=== PATIENT | female | born 2000 | race Asian ===

== ENCOUNTER 2022-10-17 11:53 | Outpatient (REF) | payer OTHER, SELFPAY ==
[2022-10-17 12:13] LABS: MANUAL DIFF FLAG NO
[2022-10-17 12:33] LABS: Basophils Absolute Auto 0.1 X10*3/uL (0.0-0.2); Basophils Percent Auto 0.8 % (0-2); Eosinophils Absolute Auto 0.9 X10*3/uL (0.0-0.4); Eosinophils Percent Auto 11.9 % (0-4); Hematocrit 45.5 % (37.0-47.0); Hemoglobin 14.5 g/dl (12.0-16.0); Imm Gran Abs Auto 0.01 X10*3/uL (0.00-0.03); Imm Gran Pct Auto 0.1 % (0.0-0.4); Lymphocytes Absolute Auto 2.4 X10*3/uL (1.2-4.9); Lymphocytes Percent Auto 29.8 % (20-40); Mean Corpuscular HGB Conc 31.9 g/dl (31.0-35.0); Mean Corpuscular Hemoglobin 26.2 pg (27.0-33.0); Mean Corpuscular Volume 82.3 fL (80.0-98.0); Mean Platelet Volume 10.6 fL (9.4-12.3); Monocytes Absolute Auto 0.4 X10*3/uL (0.1-1.2); Monocytes Percent Auto 5.3 % (2-11); Neutrophils Absolute Auto 4.1 x10*3/uL (2.0-8.3); Neutrophils Percent Auto 52.1 % (45-73); Platelet Count 283 X10*3/uL (160-400); Red Blood Count 5.53 X10*6/uL (4.20-5.50); Red Cell Distribution Width 12.8 % (11.0-16.0); White Blood Count 7.9 X10*3/uL (4.8-10.8)
[2022-10-17 13:12] LABS: Alanine Aminotransferase 20 U/L (0-31); Albumin Level 4.7 g/dL (3.5-5.0); Alkaline Phosphatase 51 U/L (39-117); Aspartate Amino Transferase 18 U/L (5-31); Bilirubin Direct < 0.2 mg/dL (0.0-0.5); Bilirubin Total 0.4 mg/dL (0.0-1.0); Estimated Glomerular Filt Rate > 60; Total Protein 7.5 g/dL (6.5-8.0)
[2022-10-19 19:48] LABS: TS Negative Control Passed; TS Panel A 0; TS Panel B 0; TS Positive Control Passed; TSpotTB Negative (Negative)
== END 2022-10-17 11:54 | disposition home or self-care (01) ==
LOC: HO.LAB 11:53
PROVIDERS: PCP Nurse Practitioner Family; Visit Provider Dermatology
DX: L20.84 Intrinsic (allergic) eczema (principal); Z79.899 Other long term (current) drug therapy
CPT/HCPCS: 36415; 80076; 82565; 85025; 86481

== ENCOUNTER 2022-11-10 10:59 | Emergency (ER) | payer OTHER, SELFPAY ==
--- NOTE | ~2022-11-10 | XR_ITS ---
EXAMINATION: XR CHEST CLINICAL INFORMATION: Allergic reaction. COMPARISON: None available. TECHNIQUE: 2 views of the chest were obtained. FINDINGS: No significant abnormality is noted involving the heart, lungs, mediastinum, bony thorax or soft tissues. XR/XR chest 2V IMPRESSION: No acute cardiopulmonary process.
[2022-11-10 11:08] VITALS: BP 143/94; PULSE 72; PULSE 80; RESP 20; TEMP 36.9; O2SAT 99; BMI 23.0
[2022-11-10 11:44] VITALS: BP 122/85; PULSE 60; RESP 16; TEMP 36.9; O2SAT 92
--- NOTE | 2022-11-10 11:48 | ED.ALLEREA ---
HPI - Allergic Reaction General Chief complaint: Allergic Reaction Stated complaint: ?ALL RXN/CHICKPEAS,-RASH,ABD PAIN,VOMITING Time Seen by Provider: 11/10/22 11:29 Source: patient Mode of arrival: EMS Limitations: no limitations History of Present Illness HPI narrative: Patient is a 22-year-old female being brought in by EMS with an extensive list of food allergies, eczema, and asthma, cc n/v and abd cramping after having a few bites of a salad she believes may have contained chickpeas which she is highly allergic to. Pt states she ordered the salad from [facility], has had it before without issue and orders it without the chickpeas but knows it comes with it usually. Patient says she realize she was having the reaction pretty quickly because she is use to having reactions to food. However, she has not had a reaction like this since she was a young child. She said her belly started cramping, she vomited three times, and then was dry heaving for a bit. She states that she did not use her epi pen and was not given any epi by EMS but was given benadryl by them. She denies stridor, difficulty swallowing, wheezing, chest pain, sob, edema, urticaria, or diarrhea. MD complaint: allergic reaction Onset (ago): hour(s) (2) Exposure: food Known history of allergy to: Chick peas Symptoms: nausea, vomiting and abdominal pain (cramping intermittently) Severity: mild Treatment prior to arrival: benadryl (by EMS) Previous Allergic Reaction History: other (multiple food reactions) Related Data Home Medications Medication Instructions Recorded Confirmed cetirizine 10 mg tablet (Zyrtec) 10 mg PO DAILY PRN 12/10/20 12/02/21 clobetasol 0.05 % topical cream 1 appl topical DAILY 12/10/20 12/02/21 Previous Rx's Medication Instructions Recorded epinephrine 0.3 mg/0.3 mL 0.3 mg (0.3 mL) IM ONCE PRN 12/10/20 injection, auto-injector (EpiPen anaphylaxis 90 days #2 ea 2-Andrew) pimecrolimus 1 % topical cream 1 appl topical BID 30 days #60 01/27/22 (Elidel) grams nirmatrelvir 300 mg (150 mg See Rx Instructions PO .COMPLEX 02/17/22 x2)-ritonavir 100 mg tablet,dose #30 tabs pack(EUA) triamcinolone acetonide 0.5 % 1 appl topical DAILY #15 grams 05/08/22 topical cream albuterol sulfate 90 mcg/actuation 1 inh inhalation Q4-6H PRN 06/03/22 breath activated powder inhaler shortness of breath 30 days #1 ea triamcinolone and Emollient .1% Kit 0.1 % .Route 2XW 30 days #1 kit 06/03/22 montelukast 10 mg tablet 10 mg PO DAILY 90 days #90 tabs 08/28/22 hydroxyzine HCl 25 mg tablet 25 mg PO BID PRN itching 90 days 09/04/22 #180 tabs fluoxetine 10 mg capsule 10 mg PO DAILY 90 days #90 caps 10/09/22 fluoxetine 20 mg capsule 20 mg PO DAILY 90 days #90 caps 10/09/22 fluticasone propionate 230 2 puff inhalation BID #12 grams 10/27/22 mcg-salmeterol 21 mcg/actuation HFA inhaler (Advair HFA) amoxicillin 875 mg tablet 875 mg PO BID 7 days #14 tabs 11/02/22 polymyxin B sulfate 10,000 1 drp ophthalmic (eye) Q3H 7 days 11/02/22 unit-trimethoprim 1 mg/mL eye #10 mL drops (Polytrim) Allergies Allergy/AdvReac Type Severity Reaction Status Date / Time chicken derived Allergy Unknown STOMACH Verified 11/10/22 11:11 [CHICKEN DERIVED] UPSET fish derived [FISH DERIVED] Allergy Unknown NAUSEA & Verified 11/10/22 11:11 VOMITING wheat [WHEAT] AdvReac Severe VOMITING Verified 11/10/22 11:11 egg [EGGS] AdvReac Unknown NAUSEA/STOMACH Verified 11/10/22 11:11 CRAMPS nut - unspecified [nut] AdvReac Unknown VOMITING Verified 11/10/22 11:11 CHICK PEAS Allergy Severe ANAPHYLAXIS Uncoded 12/02/21 16:27 chicken Allergy Unknown Unknown Uncoded 12/02/21 16:27 chickpeas Allergy Unknown Unknown Uncoded 12/02/21 16:27 codfish Allergy Unknown Unknown Uncoded 12/02/21 16:27 egg Allergy Unknown Unknown Uncoded 12/02/21 16:27 fish Allergy Unknown Unknown Uncoded 12/02/21 16:27 garlic Allergy Unknown Unknown Uncoded 12/02/21 16:27 chaz Allergy Unknown Unknown Uncoded 12/02/21 16:27 nuts Allergy Unknown Unknown Uncoded 12/02/21 16:27 peanuts Allergy Unknown Unknown Uncoded 12/02/21 16:27 potatoes Allergy Unknown Unknown Uncoded 12/02/21 16:27 soybean Allergy Unknown Unknown Uncoded 12/02/21 16:27 turkey Allergy Unknown Unknown Uncoded 12/02/21 16:27 wheat Allergy Unknown Unknown Uncoded 12/02/21 16:27 Review of Systems Review of Systems: Constitutional : No Weight loss, No Fever, No Chills, No Night Sweats, No Fatigue, No Malaise ENT/Mouth : No Hearing loss, No Ear Pain, No Nasal Congestion, No Sinus Pain, No Hoarseness, No sore throat, No Rhinorrhea, No Swallowing Difficulty Eyes: No Eye Pain, No Swelling, No Redness, No Foreign Body, No Discharge, No Vision Changes Cardiovascular : No Chest Pain, No SOB, No Dyspnea on Exertion, No Orthopnea, No Edema, No Palpitations Respiratory : No Cough, No Sputum, No Wheezing, No Smoke Exposure, No Dyspnea Gastrointestinal : Positive Nausea, Positive Vomiting, Positive abdominal pain, No Hematochezia, No Melena Genitourinary : no irregular bleeding, No Dysuria, No Urinary Frequency, No Hematuria, No Urinary Incontinence, No Urgency, No Flank Pain, No Urinary Flow Changes, No Hesitancy Musculoskeletal : No joint pain, No Myalgias, No Joint Swelling Skin : Eczema on face and neck, no lesions Neuro : No Weakness, No Numbness, No Paresthesias, No Loss of Consciousness, No Dizziness, No Headache Psych : No Anxiety/Panic, No Depression, No SI/HI/AH/VH, No Social Issues, Heme/Lymph: No Bruising, No Bleeding,No Lymphadenopathy Endocrine : No Polyuria, No Polydipsia, No Temperature Intolerance Yes all other systems are reviewed and are negative [facility] Past Medical History Attestation statement: The following information was validated with the patient. Source: old records reviewed and nursing notes reviewed Family History Family History Brother Mental health disorder Maternal Aunt Mental health disorder Maternal Uncle Mental health disorder Social History Social History Housing: Condominium Patient Tobacco Use Status: Current everyday Tobacco user Cigarettes Per Day: 1 e-Cigarette/Vaping Use: Currently Using Second Hand Smoke Exposure: No Advance Directives: No Advance Directives Information Provided: Yes service: No Current occupational status: employed Current occupation: [employer] Current occupational exposures/hazards: Yes Cognitive needs: No Hearing needs: No Vision needs: No Physical Exam ED Vital Signs: Vital Signs - 24 hr 11/10/22 11:08 11/10/22 11:44 Temperature 98.4 F 98.5 F Pulse Rate 72 60 Respiratory Rate 20 16 Blood Pressure 143/94 H 122/85 Pulse Oximetry 99 92 Oxygen Delivery Method Room Air Room Air BMI result Body Mass Index 23.0 Vital signs have been reviewed and all within normal limits Appearance: Alert. Oriented X3. No acute distress. Head: Normal external exam. Normocephalic. Eyes: PERRLA. EOMI. Conjunctiva and sclera normal. Eyelids normal. ENT: Pharynx normal. Uvula midline. Moist mucous membranes. No trismus noted. No drooling noted. No muffled voice noted. Neck: Normal inspection. Neck supple. FROM. No adenopathy. No meningeal signs. CVS: Normal heart rate and rhythm. Heart sound normal. No murmurs noted. Pulses normal throughout. Respiratory: No respiratory distress. Painless inspiration. Breath sounds normal. No wheezes/rales/rhonchi noted. Chest nontender. No accessory muscle usage noted or decreased air movement noted. Abdomen: Soft and nontender. Nondistended. No guarding. No rigidity. Bowel sounds normal in all 4 quadrants. No distention noted. No organomegaly noted. No visible injury noted. No rebound tenderness. Negative Rovsing sign. Negative obturator's sign. Negative psoas sign. Negative Asher sign. Back: No CVA tenderness. Full range of motion noted. Skin: No urticaria, Skin warm and dry. Normal skin color. Normal skin turgor. No rashes/lesions/lacerations noted. Extremities: Extremities exhibit normal range of motion. Extremities nontender. Neuro: Oriented X 3. No motor deficit. No sensory deficit. Reflexes normal. Normal steady gait. CN's II-XII intact bilaterally? Course Course Course Narrative: All labs within normal limits. Patient did not want the Solu-Medrol. She did receive the Pepcid in the Toradol. Reports she feels much better. Requesting to go home therefore at this time will DC home instructions return if any new or worsening symptoms to follow up with primary care provider and to take her medications as prescribed if she has any. Patient understands agrees with this plan. Medications Administered Discontinued Medications Generic Name Dose Route Start Last Admin Trade Name Mahendra PRN Reason Stop Dose Admin Famotidine 20 mg 11/10/22 11:49 11/10/22 12:01 Famotidine/Pf 20 Mg/2 Ml Vial IVPUSH 11/10/22 11:50 20 mg ONCE ONE Administration Sodium Chloride 1,000 mls @ 999 mls/hr 11/10/22 11:45 11/10/22 13:03 Ns IVCONT 11/10/22 12:45 Infused .Q1H1M MIKAEL Infusion Methylprednisolone Sodium Succinate 125 mg 11/10/22 11:49 11/10/22 12:02 Methylprednisolone Sod Succ 125 Mg/2 Ml Vial IVPUSH 11/10/22 11:50 Not Given ONCE ONE Medical Decision Making Medical Decision Making MDM Narrative: This 22-year-old female patient presents with symptoms consistent with acute allergic reaction, likely to chick peas which she has a known allergy to. Presentation not consistent with acute anaphylaxis(lack of pulmonary, dermatologic, or cardiovascular symptoms), lack of hypotension, angioedema, serum sickness, ingestion of preformed toxin. No evidence of airway compromise or shock at this time. Pt treated for an allergic reaction with benadryl by EMS prior to arrival. She was treated for abd cramping with famotidine and refused solumedrol. There was no indication for epinephrine at this time. Plan: Labs, CXR, UA, H1/H2 jihan, steroids(refused), hemodynamic monitoring, serial reassessment Lab Data [facility] Lab Attestation statement: I reviewed the patient's lab results. 11/10/22 13:03 11/10/22 13:04 Labs: Lab Results 11/10/22 11/10/22 11/10/22 Range/Units 12:27 13:03 13:04 WBC 10.3 (4.8-10.8) X10*3/uL RBC 5.23 (4.20-5.50) X10*6/uL Hgb 13.7 (12.0-16.0) g/dl Hct 43.3 (37.0-47.0) % MCV 82.8 (80.0-98.0) fL MCH 26.2 L (27.0-33.0) pg MCHC 31.6 (31.0-35.0) g/dl RDW 13.2 (11.0-16.0) % Plt Count 247 (160-400) X10*3/uL MPV 10.8 (9.4-12.3) fL Immature Gran % (Auto) 0.3 (0.0-0.4) % Neut % (Auto) 66.9 (45-73) % Lymph % (Auto) 21.7 (20-40) % Pettis % (Auto) 6.1 (2-11) % Eos % (Auto) 4.5 H (0-4) % Baso % (Auto) 0.5 (0-2) % Lymph # (Auto) 2.2 (1.2-4.9) X10*3/uL Pettis # (Auto) 0.6 (0.1-1.2) X10*3/uL Eos # (Auto) 0.5 H (0.0-0.4) X10*3/uL Baso # (Auto) 0.1 (0.0-0.2) X10*3/uL Abs Immat Gran (auto) 0.03 (0.00-0.03) X10*3/uL Absolute Neuts (auto) 6.9 (2.0-8.3) x10*3/uL Absolute Nucleated RBC 0.000 (0.0-0.012) X10*3/uL Nucleated RBC % (auto) 0.0 (0.0-0.2) /100WBC Sodium 142 (135-145) mmol/L Potassium 4.2 (3.3-5.1) mmol/L Chloride 107 (96-108) mmol/L Carbon Dioxide 26 (22-29) mmol/L Anion Gap 13 (12-20) BUN 6 L (9-16) mg/dL Creatinine 0.76 (0.5-1.4) mg/dL Estim Creat Clear Calc 95.2 Estimated GFR > 60 Random Glucose 92 (60-115) mg/dL Calcium 8.7 (8.4-10.2) mg/dL Magnesium 2.0 (1.6-2.6) mg/dL Total Bilirubin 0.5 (0.0-1.0) mg/dL AST 19 (5-31) U/L ALT 15 (0-31) U/L Alkaline Phosphatase 53 (39-117) U/L Total Protein 6.4 L (6.5-8.0) g/dL Albumin 3.9 (3.5-5.0) g/dL Lipase 52 (8-78) U/L Urine Color Yellow Urine Appearance Clear Urine pH 6.0 (5.0-9.0) Ur Specific Logan 1.015 (1.005-1.025) Urine Protein Negative (Neg-Trace) mg/dL Urine Glucose (UA) Negative (Negative) mg/dL Urine Ketones Negative (Negative) mg/dL Urine Blood Large (3+) H (Negative) Urine Nitrite Negative (Negative) Ur Leukocyte Esterase Small (1+) H (Negative) Urine RBC 3-5 H (0-2) /HPF Urine WBC 6-10 H (0-5) /HPF Ur Squamous Epith Cells 6-10 (0-2) /HPF Urine Bacteria Trace (None Seen) Hyaline Casts 0-2 (0-2) /LPF Independent Interpretation I performed an independent interpretation of an: Plain X-Ray (Chest x-ray reviewed by myself agreeable radiologist report) Radiology Impression Discussion of test interpretation with radiology: I have reviewed the radiologist's reading. Radiologist Impression: FINDINGS: No significant abnormality is noted involving the heart, lungs, mediastinum, bony thorax or soft tissues. XR/XR chest 2V IMPRESSION: No acute cardiopulmonary process. Discharge Plan Discharge Clinical Impression: Allergic reaction, Nausea & vomiting, Abdominal cramping Patient Disposition: Home, Self-Care Instructions: General Allergic Reaction (ED) Prescriptions: No Action epinephrine [EpiPen 2-Andrew] 0.3 mg/0.3 mL auto-injector 0.3 mg IM ONCE PRN (Reason: anaphylaxis) 90 Days Qty: 2 1RF Rx Instructions: for 2 doses cetirizine [Zyrtec] 10 mg tablet 10 mg PO DAILY PRN clobetasol 0.05 % cream 1 appl topical DAILY pimecrolimus [Elidel] 1 % cream 1 appl topical BID 30 Days Qty: 60 5RF nirmatrelvir-ritonavir 150 mg x 2- 100 mg tablet See Rx Instructions PO .COMPLEX Qty: 30 0RF Rx Instructions: take TWO 150 mg tablets of nirmatrelvir with ONE 100 mg tablet of ritonavir twice daily for 5 days PO triamcinolone acetonide 0.5 % cream 1 appl topical DAILY Qty: 15 3RF triamcinolone and Emollient .1% Kit 0.1 % .Route 2XW 30 Days Qty: 1 6RF Rx Instructions: apply locally on skin as needed albuterol sulfate 90 mcg/actuation aerosol powdr breath activated 1 inh inhalation Q4-6H PRN (Reason: shortness of breath) 30 Days Qty: 1 1RF montelukast 10 mg tablet 10 mg PO DAILY 90 Days Qty: 90 0RF hydroxyzine HCl 25 mg tablet 25 mg PO BID PRN (Reason: itching) 90 Days Qty: 180 3RF fluoxetine 10 mg capsule 10 mg PO DAILY 90 Days Qty: 90 1RF Rx Instructions: to be administered with fluoxetine 20mg concurrently, for a total of 30mg fluoxetine 20 mg capsule 20 mg PO DAILY 90 Days Qty: 90 1RF Rx Instructions: administer with fluoxetine 10mg concurrently, for a total of 30mg Advair HFA 230-21 mcg/actuation HFA aerosol inhaler 2 puff inhalation BID Qty: 12 0RF Rx Instructions: Schedule next PCP appt for future refills polymyxin B sulf-trimethoprim [Polytrim] 10,000 unit- 1 mg/mL drops 1 drp ophthalmic (eye) Q3H 7 Days Qty: 10 0RF Rx Instructions: while awake; do not exceed 6 doses in 24 hours amoxicillin 875 mg tablet 875 mg PO BID 7 Days Qty: 14 0RF Referrals: Jerry Trevino, T[employer]IT[employer] ACCOUNT REPRESENTATIVE-[facility] [Primary Care Provider] - 2 days Print Language: Swedish
[2022-11-10] MEDS: Famotidine/PF 20 MG/2 ML VIAL IVPUSH (12:01)
[2022-11-10] MEDS: 0.9 % Sodium Chloride 1,000 ML 999 ML IVCONT (12:02)
--- NOTE | 2022-11-10 12:05 | PC.NURSE ---
Patient reporting abdominal cramping, medicated with famotidine per MAR. Patient refusing solumedrol at this time.
[2022-11-10 12:43] LABS: Appearance Urine Clear; Color Urine Yellow; Glucose Urine UA Negative (Negative); Leukocyte Esterase Urine Small (1+) (Negative); Nitrite Urine Negative (Negative); Specific Gravity - Urine 1.015 (1.005-1.025); UMIC TRIGGER UACC YES; Urine Blood Large (3+) (Negative); Urine Ketones Negative (Negative); Urine Protein Negative (Neg-Trace)
[2022-11-10 12:50] LABS: Bacteria Urine Trace (None Seen); Hyaline Casts Urine 0-2 /LPF (0-2); UACC Culture Trigger YES
[2022-11-10 13:08] LABS: MANUAL DIFF FLAG NO
[2022-11-10 13:09] LABS: Basophils Absolute Auto 0.1 X10*3/uL (0.0-0.2); Basophils Percent Auto 0.5 % (0-2); Eosinophils Absolute Auto 0.5 X10*3/uL (0.0-0.4); Eosinophils Percent Auto 4.5 % (0-4); Hematocrit 43.3 % (37.0-47.0); Hemoglobin 13.7 g/dl (12.0-16.0); Imm Gran Abs Auto 0.03 X10*3/uL (0.00-0.03); Imm Gran Pct Auto 0.3 % (0.0-0.4); Lymphocytes Absolute Auto 2.2 X10*3/uL (1.2-4.9); Lymphocytes Percent Auto 21.7 % (20-40); Mean Corpuscular HGB Conc 31.6 g/dl (31.0-35.0); Mean Corpuscular Hemoglobin 26.2 pg (27.0-33.0); Mean Corpuscular Volume 82.8 fL (80.0-98.0); Mean Platelet Volume 10.8 fL (9.4-12.3); Monocytes Absolute Auto 0.6 X10*3/uL (0.1-1.2); Monocytes Percent Auto 6.1 % (2-11); Neutrophils Absolute Auto 6.9 x10*3/uL (2.0-8.3); Neutrophils Percent Auto 66.9 % (45-73); Platelet Count 247 X10*3/uL (160-400); Red Blood Count 5.23 X10*6/uL (4.20-5.50); Red Cell Distribution Width 13.2 % (11.0-16.0); White Blood Count 10.3 X10*3/uL (4.8-10.8)
[2022-11-10 13:26] LABS: Alanine Aminotransferase 15 U/L (0-31); Albumin Level 3.9 g/dL (3.5-5.0); Alkaline Phosphatase 53 U/L (39-117); Anion Gap 13 (12-20); Aspartate Amino Transferase 19 U/L (5-31); Bilirubin Total 0.5 mg/dL (0.0-1.0); Blood Urea Nitrogen 6 mg/dL (9-16); Calcium 8.7 mg/dL (8.4-10.2); Carbon Dioxide 26 mmol/L (22-29); Chloride 107 mmol/L (96-108); Creatinine Clr Calc Pharmacy 95.2; Estimated Glomerular Filt Rate > 60; Glucose Random 92 mg/dL (60-115); Lipase 52 U/L (8-78); Potassium 4.2 mmol/L (3.3-5.1); Sodium 142 mmol/L (135-145); Total Protein 6.4 g/dL (6.5-8.0)
[2022-11-10 13:33] LABS: HCG Quantitative < 2 mIU/mL
== END 2022-11-10 13:43 | disposition home or self-care (01) ==
PROVIDERS: Physician Assistant Medical; Emergency Provider Emergency Medicine; PCP Nurse Practitioner Family
DX: T78.1XXA Other adverse food reactions, not elsewhere classified, initial encounter (principal); R21 Rash and other nonspecific skin eruption; R10.9 Unspecified abdominal pain; R11.2 Nausea with vomiting, unspecified; T78.49XA Other allergy, initial encounter; Z91.018 Allergy to other foods; X58.XXXA Exposure to other specified factors, initial encounter
CPT/HCPCS: 36415; 71046; 80053; 81001; 83690; 83735; 84702; 85025; 87086; 96361; 96374; 99284

== ENCOUNTER 2023-01-30 07:01 | Outpatient (REF) | payer OTHER, SELFPAY ==
[2023-01-30 07:13] LABS: MANUAL DIFF FLAG NO
[2023-01-30 07:47] LABS: Basophils Percent Auto 0.5 % (0-2); Eosinophils Absolute Auto 0.5 X10*3/uL (0.0-0.4); Eosinophils Percent Auto 7.7 % (0-4); Hematocrit 44.8 % (37.0-47.0); Hemoglobin 14.5 g/dl (12.0-16.0); Imm Gran Abs Auto 0.02 X10*3/uL (0.00-0.03); Imm Gran Pct Auto 0.3 % (0.0-0.4); Lymphocytes Absolute Auto 2.1 X10*3/uL (1.2-4.9); Mean Corpuscular HGB Conc 32.4 g/dl (31.0-35.0); Mean Corpuscular Hemoglobin 27.2 pg (27.0-33.0); Mean Corpuscular Volume 83.9 fL (80.0-98.0); Mean Platelet Volume 11.5 fL (9.4-12.3); Monocytes Absolute Auto 0.4 X10*3/uL (0.1-1.2); Monocytes Percent Auto 6.5 % (2-11); Neutrophils Absolute Auto 3.5 x10*3/uL (2.0-8.3); Platelet Count 221 X10*3/uL (160-400); Red Blood Count 5.34 X10*6/uL (4.20-5.50); Red Cell Distribution Width 13.9 % (11.0-16.0); White Blood Count 6.6 X10*3/uL (4.8-10.8)
[2023-01-30 08:13] LABS: Alanine Aminotransferase 30 U/L (0-31); Albumin Level 4.9 g/dL (3.5-5.0); Alkaline Phosphatase 46 U/L (39-117); Aspartate Amino Transferase 28 U/L (5-31); Bilirubin Direct 0.2 mg/dL (0.0-0.5); Bilirubin Total 0.5 mg/dL (0.0-1.0); Cholesterol 209 mg/dL; HDL Cholesterol 84 mg/dL; LDL Cholesterol Calculated 113 mg/dl; Triglycerides 60 mg/dL
== END 2023-01-30 07:02 | disposition home or self-care (01) ==
LOC: HO.LAB 07:01
PROVIDERS: PCP Nurse Practitioner Family; Visit Provider Dermatology
DX: L20.84 Intrinsic (allergic) eczema (principal); Z79.899 Other long term (current) drug therapy
CPT/HCPCS: 36415; 80061; 80076; 85025

== ENCOUNTER 2023-04-21 08:09 | Outpatient (AMB) | payer OTHER, SELFPAY ==
--- NOTE | 2023-04-21 08:12 | A.OFFPC_ITS ---
Vital Signs 04/21/23 08:23 Height 5 ft 3 in Weight 135 lb BMI 23.9 BP 114/68 Blood Pressure Location Rt brachial Position Sitting Pulse 90 Pulse Source Pulse Oximeter Pulse Oximetry (%) 100 Oxygen Delivery Method Room Air Intake Visit Reasons: Annual check-up Intake Note: Pt is here today for her PE Is last menstrual period known: Yes Last menstrual period: 03/21/23 Allergies chicken derived [CHICKEN DERIVED] Allergy (Unknown, Verified 04/21/23 08:33) STOMACH UPSET fish derived [FISH DERIVED] Allergy (Unknown, Verified 04/21/23 08:33) NAUSEA & VOMITING wheat [WHEAT] Adverse Reaction (Severe, Verified 04/21/23 08:33) VOMITING egg [EGGS] Adverse Reaction (Unknown, Verified 04/21/23 08:33) NAUSEA/STOMACH CRAMPS nut - unspecified [nut] Adverse Reaction (Unknown, Verified 04/21/23 08:33) VOMITING CHICK PEAS Allergy (Severe, Uncoded 04/21/23 08:33) ANAPHYLAXIS chicken Allergy (Unknown, Uncoded 04/21/23 08:33) Unknown chickpeas Allergy (Unknown, Uncoded 04/21/23 08:33) Unknown codfish Allergy (Unknown, Uncoded 04/21/23 08:33) Unknown egg Allergy (Unknown, Uncoded 04/21/23 08:33) Unknown fish Allergy (Unknown, Uncoded 04/21/23 08:33) Unknown garlic Allergy (Unknown, Uncoded 04/21/23 08:33) Unknown chaz Allergy (Unknown, Uncoded 04/21/23 08:33) Unknown nuts Allergy (Unknown, Uncoded 04/21/23 08:33) Unknown peanuts Allergy (Unknown, Uncoded 04/21/23 08:33) Unknown potatoes Allergy (Unknown, Uncoded 04/21/23 08:33) Unknown soybean Allergy (Unknown, Uncoded 04/21/23 08:33) Unknown turkey Allergy (Unknown, Uncoded 04/21/23 08:33) Unknown wheat Allergy (Unknown, Uncoded 04/21/23 08:33) Unknown Medication List - Last Reconciled 04/21/23 by Ashley Harmon MD albuterol sulfate 90 mcg/actuation 1 inh inhalation Q4-6H PRN 30 days cetirizine (Zyrtec) 10 mg PO DAILY PRN clobetasol 0.05% 1 appl topical DAILY epinephrine (EpiPen 2-Andrew) 0.3 mg (0.3 mL) IM ONCE PRN 90 days fluoxetine 10 mg PO DAILY 90 days fluoxetine 20 mg PO DAILY 90 days fluticasone propion-salmeterol 230-21 mcg/actuation (Advair HFA) 2 puffs inhalation BID hydroxyzine HCl 25 mg PO BID PRN 90 days montelukast 10 mg PO DAILY 90 days pimecrolimus 1% (Elidel) 1 appl topical BID 30 days triamcinolone acetonide 0.5% 1 appl topical DAILY [triamcinolone and Emollient .1% Kit apply locally on skin as needed 30 days] upadacitinib ER (Rinvoq) 15 mg PO DAILY Tobacco use date assessed: 04/21/23 Dental Screening Dental Screen Date: 04/21/23 Did you have a dental visit in the last 12 months?: Yes Did you have a dental problem in the last 6 months where you did not have access to dental care?: No Was dental information given to patient?: Patient has dentist HPI Annual check-up HPI Details 23-year-old lady here today for her mahnaz al physical exam. She has multiple food allergies, and moderate persistent asthma, eczema, anxiety disorder currently stable controlled present treatment. She is currently followed at [facility] by Dr. Salas for her eczema . She has been getting more frequent anxiety attacks lately, and states that she has been drinking vodka at least will times a week, would like help quitting. She was being seen by therapist and psychiatrist in the past , would like to be referred to see a psychiatrist again. [facility] Medical History (Updated 05/21/23 @ 03:22 by Ashley Harmon MD) Mild intermittent asthma Nut allergy Food allergic dermatitis Eczema Anxiety Surgical History (Updated 04/21/23 @ 08:38 by Ashley Harmon MD) No pertinent past surgical history Family History Brother Mental health disorder Maternal Aunt Mental health disorder Maternal Uncle Mental health disorder Social History Housing: Condominium Patient Tobacco Use Status: Current everyday Tobacco user Cigarettes Per Day: 1 e-Cigarette/Vaping Use: Former Use Second Hand Smoke Exposure: No service: No Current occupational status: employed Current occupation: [employer] Current occupational exposures/hazards: Yes Cognitive needs: No Hearing needs: No Vision needs: No Female Reproductive History Menstrual Date of last menstrual period: 03/21/23 control method: none Other: [facility], patient states last Pap smear was 2 years ago and was normal Questionnaire PHQ-9 Over the last 2 weeks, how often have you been bothered by any of the following problems? 1. Little interest or pleasure in doing things: not at all 2. Feeling down, depressed, or hopeless: not at all 3. Trouble falling or staying asleep, or sleeping too much: several days 4. Feeling tired or having little energy: several days 5. Poor appetite or overeating: not at all 6. Feeling bad about yourself - or that you are a failure or have let yourself or your family down: more than half the days 7. Trouble concentrating on things, such as reading the newspaper or watching television: not at all 8. Moving or speaking so slowly that other people could have noticed. Or the opposite - being so fidgety or restless that you have been moving around a lot more than usual: not at all 9. Thoughts that you would be better off or of hurting yourself in some way: not at all Total score: 4 Depression Screening Interpretation: Positive (Has more anxiety disorder) Depression Screening Follow-up: Existing condition, In treatment and Community Mental Health Worker F/U 19685 - PHQ-9 Billing: Yes Source: Developed by Drs. Ponce Yoo, Alta Yusuf, Trey Gold and colleagues, with an educational olga lidia from [employer]. Thrive Questionnaire Date Thrive assessed: 04/21/23 I am a: Patient What is your living situation today?: I have a steady place to live Within the past 12 months, did the food you bought not last and you didn't have the money to get more?: Never true Within the past 12 months, did you worry whether your food would run out before you got money to buy more?: Never true Do you have trouble paying for medicines?: No Do you have trouble getting transportation to medical appointments?: No Do you have trouble paying your heating and electricity bill?: No Do you have trouble taking care of your child, family member or friend?: No Do you have trouble with day-to-day activities such as bathing, preparing meals, shopping, managing finances, etc.?: No Are you currently unemployed and looking for a job?: No Are you interested in more education?: No AUDIT C Alcohol Use Questionnaire (AUDIT-C) 1. How often do you have a drink containing alcohol?: Monthly or less (Vodka) 2. How many drinks containing alcohol do you have on a typical day when you are drinking?: 1 or 2 3. How often do you have six or more drinks on one occasion?: Never Total Score: 1 MARIELA-7 AMB Questionnaire MARIELA-7 Date MARIELA - 7 assessed: 04/21/23 Feeling nervous, anxious, or on edge: 2 = More than half the days Not being able to stop or control worryin = Several days Worrying too much about different things: 1 = Several days Trouble relaxin = Several days Being so restless that it is hard to sit still: 1 = Several days Becoming easily annoyed or irritable: 1 = Several days Feeling afraid as if something awful might happen: 0 = Not at all Total MARIELA-7 score (0-4 normal; 5-9 mild; 10-14 moderate; 15-21 severe): 7 Source: Developed by Drs. Ponce Yoo, Alta Yusuf, Trey Gold and colleagues, with an educational olga lidia from [employer]. MARIELA-7 Assessment Billing MARIELA-7 Assessment Tool: MARIELA-7 Assessment 88606 ACT Questionnaire In the past 4 weeks, how much of the time did your asthma keep you from getting as much done at work, school or at home?: None of the time During the past 4 weeks, how often have you had shortness of breath?: Not at all During the past 4 weeks, how often did your asthma symptoms wake you up at night or earlier than usual in the morning?: Not at all During the past 4 weeks, how often have you had to use your rescue inhaler or nebulizer medication?: Once a week or less How would you rate your asthma control during the past 4 weeks?: Completely controlled Score: 24 Review of Systems Const Denies body aches, Reports fatigue (Intermittent), Denies fever(s), Denies headache(s) and Denies weakness Eyes Denies change in vision ENT Denies dizziness, Denies headache(s), Denies nasal congestion, Denies nasal discharge and Denies sore throat Card Denies chest pain, Denies lightheadedness, Denies palpitations and Denies dysp julianne Resp Denies chest congestion, Denies cough, Denies dyspnea and Denies wheezing GI Denies abdominal pain, Denies change in bowel habits and Denies heartburn Denies hematuria, Denies urinary frequency, Denies dysuria and Denies urinary urgency Musc Reports no additional complaints Skin/Breast Denies breast pain, Denies breast mass, Denies lesions and Denies rash Neuro Denies dizziness, Denies headache(s) and Denies weakness Psych Reports as per HPI Endo Reports fatigue (Intermittent), Denies polydipsia, Denies polyuria and Denies palpitations Sergey/Lymph Denies easy bruising Aller/Immun Denies seasonal rhinorrhea and Denies wheezing Physical exam (Primary Care) Vital Signs: Last Vital Signs Pulse 90 04/21/23 08:23 BP 114/68 04/21/23 08:23 Pulse Ox 100 04/21/23 08:23 Oxygen Delivery Method Room Air 04/21/23 08:23 BMI result Body Mass Index 23.9 Tobacco/Smoking Status: Tobacco use Status Tobacco use date assessed 04/21/23 04/21/23 08:14 Patient Tobacco Use Status Current everyday Tobacco 04/21/23 08:14 e-Cigarette/Vaping Use Former Use 04/21/23 08:22 PHQ-9: PHQ-9 Score PHQ-9: Total score 4 04/21/23 09:13 Depression Screening Interpretation: Positive (Has more anxiety disorder) Depression Screening Follow-up: Existing condition, In treatment and Community Mental Health Worker F/U Thrive Assessment: Date of Thrive Assessment Date Thrive assessed 04/21/23 04/21/23 08:27 Const General: cooperative and no acute distress Nutritional Appearance: average body habitus Orientation/consciousness: patient oriented x3 HENMT Head: Yes normal to inspection, Yes normocephalic and Yes atraumatic Ears: TM's normal bilaterally Eyes General: appearance normal, both eyes and all related structures Alignment and Position: alignment normal and position normal Neck Neck: Yes normal visual inspection and Yes no lymphadenopathy Chest Chest palpation & inspection: normal inspection of the chest and normal palpation of entire chest wall Breast/axilla palpation: normal palpation of the breasts Resp Effort & Inspection: normal respiratory effort Auscultation: clear to auscultation bilaterally Cardio Rate: regular rate Rhythm: regular rhythm Heart sounds: S1 normal heart sound present, S2 normal heart sound present and no murmurs GI Palpation (GI): Soft to palpation and nontender Auscultation: normal bowel sounds General: Yes no CVA tenderness and Yes deferred Back/Spine/Pelvis Back: no CVA tenderness and No back tenderness Skin Rashes: no rashes Neuro General: patient oriented x3, moves all extremities, no focal motor deficits and deep tendon reflexes 2+ bilaterally Romberg Test: Negative Extrem General: Yes normal to inspection, Yes full ROM, Yes no joint enlargement, Yes no clubbing, cyanosis or edema and Yes normal gait Psych Appearance: grossly normal Mental Status: mental status grossly normal Speech and movement: Normal speech and movement present Affect: normal affect Attitude: cooperative Thought process: Normal thought process present Thought content: Normal thought content present Immunizations pneumoc 20-kayla conj-dip cr(PF) 0.5 mL IM syringe Performing Provider: Ashley Harmon MD [facility] Administered by: Tatianna Cobos CMA on 04/21/23 09:11 Dose Route Admin Location Dispensed Lot Number Expiration Date NDC Java Consultant 0.5 mL IM Right Deltoid 0.5 mL [id number] 06/23/24 8551-0220-[address]/[place] [employer] VIS Given Date VIS Provided VIS Publication Date 04/21/23 Single Vaccine 21 Eligibility Eligibility Date Funding Source Not [facility] Eligible 04/21/23 Private Results Reviewed Results Reviewed: ENTERED: 01/30/23-[address]: Jerry Trevino [employer]- ORDERED: CBC Auto Diff Test Result Flag Reference Site WBC 6.6 4.8-10.8 X10*3/uL RBC 5.34 4.20-5.50 X10*6/uL HGB 14.5 12.0-16.0 g/dl HCT 44.8 37.0-47.0 % MCV 83.9 80.0-98.0 fL MCH 27.2 27.0-33.0 pg MCHC 32.4 31.0-35.0 g/dl RDW 13.9 11.0-16.0 % PLT 221 160-400 X10*3/uL MPV 11.5 9.4-12.3 fL Neut Pct Auto 53.0 45-73 % ImGran Pct Auto 0.3 0.0-0.4 % Lymp Pct Auto 32.0 20-40 % [place] Pct Auto 6.5 2-11 % Eos Pct Auto 7.7 H 0-4 % Baso Pct Auto 0.5 0-2 % NRBC Pct Auto 0.0 0.0-0.2 /100WBC ANC Neut Abs # 3.5 2.0-8.3 x10*3/uL ImGran Abs Auto 0.02 0.00-0.03 X10*3/uL Lymph Abs Auto 2.1 1.2-4.9 X10*3/uL [place] Abs Auto 0.4 0.1-1.2 X10*3/uL Eos Abs Auto 0.5 H 0.0-0.4 X10*3/uL Baso Abs Auto 0.0 0.0-0.2 X10*3/uL NRBC Abs Auto 0.000 0.0-0.012 X10*3/uL ENTERED: 01/30/[address] [facility] [address]: Jerry Trevino [employer] [facility] ORDERED: Liver Panel, Lipid Panel Test Result Flag Reference Site Total Bili 0.5 0.0-1.0 mg/dL Direct Bili 0.2 0.0-0.5 mg/dL AST (GOT) 28 5-31 U/L ALT (GPT) 30 0-31 U/L Protein, Total 8.0 6.5-8.0 g/dL Alb 4.9 3.5-5.0 g/dL Triglyceride 60 mg/dL Desirable Triglyceride: less than 150 mg/dL Borderline High Triglyceride 150-199 mg/dL High Triglyceride: 200-499 mg/dL Very High Triglyceride: greater than or equal to 5OO mg/dL Chol 209 mg/dL Desirable Cholesterol: less than 200 mg/dL Borderline High Cholesterol: 200-239 mg/dL High Cholesterol: greater than 239 mg/dL LDL Calculated 113 mg/dl Desirable LDL: less than 100 mg/dL Near Optimal/Above Optimal LDL: 110-129 mg/dL Borderline High LDL: 130-159 mg/dL High LDL: 160-189 mg/dL Very High LDL: greater than or equal to 190 mg/dL HDL 84 mg/dL Desirable HDL: greater than 40 mg/dL Note: This HDL assay may give artificially low results in patients with liver disease. Alk Phos 46 39-117 U/L RUN: 05/21/23 0324 PAGE 1 [facility] [address] [place] [id number] Captain/Check Airman: César Pickett M.D. Specimen Inquiry Name: Valentina Washington Age/Sex: /F : 2000 Unit#: [id number] Attend Dr: Meghna Montalvo MD Re11/10/22 Status: DEP [facility] SPEC : [id number] VICTOR MANUEL: 11/10/22 STATUS: COMP REQ : [id number] RECD: 11/10/22-1305 [facility] [place] DR: Shantelle Hernandez COMP: 11/10/22-1326 ENTERED: 11/10/22-11[address] [facility] [address]: Jerry Trevino [employer] [facility] ORDERED: CMP, MG, Lip Test Result Flag Reference Site Sodium 142 135-145 mmol/L Potassium 4.2 3.3-5.1 mmol/L CL 107 96-108 mmol/L CO2 26 22-29 mmol/L Gap 13 12-20 BUN 6 L 9-16 mg/dL Creat 0.76 0.5-1.4 mg/dL Estimated CrCl 95.2 Provided height and weight: 160.02 cm, 58.967 kg. eGFR (calculated from the MDRD study equation) and eCrCl (calculated from the Cockcroft-Gault equation) are based on different parameters and may not yield comparable results. If eCrCl result is absurd, please check patient's height/weight. EGFR > 60 NOTE: For -Palestinian individuals, multiply the result by 1.210. Chronic Kidney Disease: Estimated GFR < 60 mL/min/1.73m2 Severe Kidney Disease: Estimated GFR < 15 mL/min/1.73m2 Glucose, Random 92 60-115 mg/dL CA 8.7 8.4-10.2 mg/dL Magnesium 2.0 1.6-2.6 mg/dL Total Bili 0.5 0.0-1.0 mg/dL AST (GOT) 19 5-31 U/L ALT (GPT) 15 0-31 U/L Protein, Total 6.4 L 6.5-8.0 g/dL Alb 3.9 3.5-5.0 g/dL Alk Phos 53 39-117 U/L Lipase 52 8-78 U/L Assessment and Plan Assessment & Plan (1) Physical exam: Code(s): Z00.00 - Encounter for general adult medical examination without abnormal findings Plan: Reviewed latest labs, which showed normal lipids, normal glucose levels, no anemia,. Recommended dental visit every 6 months and regular eye exams, at least every 2 years. Take adequate calcium in diet and vitamin-D 3 at 2000 IU per cap once a day, in addition to weight-bearing exercises to help maintain good muscle tone and weight control. Instructed to do self-breast exam, and recommended to get yearly mammogram, starting at age 40. Advised to call [facility] clinic to reschedule her appointment, had an appointment last year for her routine cervical cancer screening and Pap smear but was a no-show. Reminded to get her COVID booster and flu yearly flu shot, Prevnar 20 given today, up-to-date with her Tdap. Patient strongly advised to stop smoking, Recommended to try decreasing cigarette use by 1-2 cigarettes a day. Advised to monitor what triggers are for smoking so that this can be discussed on the next office visit. We can discuss different options to quit smoking when ready. (2) Nut allergy: Code(s): Z91.018 - Allergy to other foods Plan: Currently being followed by adjust (3) Food allergic dermatitis: Code(s): L27.2 - Dermatitis due to ingested food (4) Eczema: Code(s): L30.9 - Dermatitis, unspecified Qualifiers: Eczema type: unspecified Qualified Code(s): L30.9 - Dermatitis, unspecified Plan: Followed by dermatology, Dr. Izabella salas, currently on Rinvoq, Elidel and triamcinolone cream (5) Anxiety: Code(s): F41.9 - Anxiety disorder, unspecified Plan: Currently on fluoxetine, referred to [facility] for assistance in getting in to see a therapist and psychiatrist further evaluation, and help with regards to her alcohol use (6) Mild intermittent asthma: Code(s): J45.20 - Mild intermittent asthma, uncomplicated Qualifiers: Asthma complication type: uncomplicated Qualified Code(s): J45.20 - Mild intermittent asthma, uncomplicated Plan: Continued on Advair, and albuterol inhaler used as needed for episodes of bronchospasm and wheezing. She was advised to get her flu vaccine, recommend to get COVID booster, Prevnar 20 given today, patient strongly advised to stop smoking Orders: Orders Pneumococcal 20 Immunization 04/21/23 Z23 - Encounter for immunization Medications: Changed From fluticasone propion-salmeterol 230-21 mcg/actuation Schedule next PCP appt for future refills 2 puffs inhalation BID 12 grams 0RF To Advair HFA 230-21 mcg/actuation (fluticasone propion-salmeterol) Schedule next PCP appt for future refills 2 puffs inhalation BID 12 grams 0RF NS Refilled hydroxyzine HCl 25 mg PO BID PRN 180 tabs 3RF itching 90 days Z91.018 - Allergy to other foods, L27.2 - Dermatitis due to ingested food, L50.9 - Urticaria, unspecified, L29.9 - Pruritus, unspecified, L30.9 - Dermatitis, unspecified fluoxetine to be administered with fluoxetine 20mg concurrently, for a total of 30mg 10 mg PO DAILY 90 caps 1RF 90 days fluoxetine administer with fluoxetine 10mg concurrently, for a total of 30mg 20 mg PO DAILY 90 caps 1RF 90 days F41.9 - Anxiety disorder, unspecified montelukast 10 mg PO DAILY 90 tabs 3RF 90 days Coding Level of Care Code Est Pt Prev Care 18-39y(43309) Diagnoses Physical exam Z00.00 Nut allergy Z91.018 Food allergic dermatitis L27.2 Eczema, unspecified type L30.9 Eczema type: unspecified Anxiety F41.9 Mild intermittent asthma without complication J45.20 Asthma complication type: uncomplicated Additional Codes MARIELA-7 Assessment Billing - MARIELA-7 Assessment Tool: MARIELA-7 Assessment [id number] ([id number])
[2023-04-21 08:23] VITALS: BP 114/68; PULSE 90; O2SAT 100; BMI 23.9
== END 2023-04-21 09:17 | disposition home or self-care (01) ==
PROVIDERS: PCP Internal Medicine; Visit Provider Internal Medicine
DX: Z23 Encounter for immunization (principal)
CPT/HCPCS: 90471; 90677; 99395

== ENCOUNTER 2024-11-18 11:29 | Outpatient (AMB) | payer OTHER, SELFPAY ==
--- NOTE | 2024-11-18 11:30 | A.OFFPC_ITS ---
Intake Visit Reasons: medication refill Allergies chicken derived [CHICKEN DERIVED] Allergy (Unknown, Verified 04/21/23 08:33) STOMACH UPSET fish derived [FISH DERIVED] Allergy (Unknown, Verified 04/21/23 08:33) NAUSEA & VOMITING wheat [WHEAT] Adverse Reaction (Severe, Verified 04/21/23 08:33) VOMITING egg [EGGS] Adverse Reaction (Unknown, Verified 04/21/23 08:33) NAUSEA/STOMACH CRAMPS nut - unspecified [nut] Adverse Reaction (Unknown, Verified 04/21/23 08:33) VOMITING CHICK PEAS Allergy (Severe, Uncoded 04/21/23 08:33) ANAPHYLAXIS chicken Allergy (Unknown, Uncoded 04/21/23 08:33) Unknown chickpeas Allergy (Unknown, Uncoded 04/21/23 08:33) Unknown codfish Allergy (Unknown, Uncoded 04/21/23 08:33) Unknown egg Allergy (Unknown, Uncoded 04/21/23 08:33) Unknown fish Allergy (Unknown, Uncoded 04/21/23 08:33) Unknown garlic Allergy (Unknown, Uncoded 04/21/23 08:33) Unknown chaz Allergy (Unknown, Uncoded 04/21/23 08:33) Unknown nuts Allergy (Unknown, Uncoded 04/21/23 08:33) Unknown peanuts Allergy (Unknown, Uncoded 04/21/23 08:33) Unknown potatoes Allergy (Unknown, Uncoded 04/21/23 08:33) Unknown soybean Allergy (Unknown, Uncoded 04/21/23 08:33) Unknown turkey Allergy (Unknown, Uncoded 04/21/23 08:33) Unknown wheat Allergy (Unknown, Uncoded 04/21/23 08:33) Unknown Medication List - Last Reconciled 11/19/24 by Ashley Harmon MD Advair HFA 230-21 mcg/actuation (fluticasone propion-salmeterol) 2 puffs inhalation BID 90 days NS albuterol sulfate 90 mcg/actuation 1 inh inhalation Q4-6H PRN 30 days budesonide 0.5 mg (2 mL) inhalation DAILY 30 days cetirizine (Zyrtec) 10 mg PO DAILY PRN clobetasol 0.05% 1 appl topical DAILY epinephrine (EpiPen 2-Andrew) 0.3 mg (0.3 mL) IM ONCE PRN 90 days fluoxetine 10 mg PO DAILY 90 days fluoxetine 20 mg PO DAILY 90 days gabapentin 300 mg PO TID hydroxyzine HCl 25 mg PO BID PRN 90 days montelukast 10 mg PO DAILY 90 days naltrexone 50 mg PO DAILY pimecrolimus 1% (Elidel) 1 appl topical BID 30 days prednisone 10 mg PO DAILY triamcinolone acetonide 0.5% 1 appl topical DAILY 90 days [triamcinolone and Emollient .1% Kit apply locally on skin as needed 30 days] Tobacco use date assessed: 11/18/24 Dental Screening Dental Screen Date: 04/21/23 HPI medication refill HPI Details 24-year-old lady with history of multipl e allergies, bronchial asthma, anxiety disorder, here today for follow-up on her alcohol use disorder. She is currently seeing a therapist and is currently following the Rincon method to deal with her alcohol use disorder, which is an evidence based treatment for problematic drinking that uses naltrexone. She has not been drinking regularly, only here and there and is afraid that she might relapse into alcoholism again when she goes out for drinks socially. [facility] Medical History Alcohol use disorder, mild, in early remission Mild intermittent asthma Nut allergy Food allergic dermatitis Eczema Anxiety Surgical History No pertinent past surgical history Family History Brother Mental health disorder Maternal Aunt Mental health disorder Maternal Uncle Mental health disorder Social History Housing: Condominium Patient Tobacco Use Status: Current everyday Tobacco user Cigarettes Per Day: 1 e-Cigarette/Vaping Use: Former Use Second Hand Smoke Exposure: No service: No Current occupational status: employed Current occupation: [employer] Current occupational exposures/hazards: Yes Cognitive needs: No Hearing needs: No Vision needs: No Questionnaire Thrive Questionnaire Date Thrive assessed: 04/21/23 MARIELA-7 AMB Questionnaire MARIELA-7 Date MARIELA - 7 assessed: 04/21/23 Source: Developed by Drs. Ponce Yoo, Alta BTrey Veliz and colleagues, with an educational olga lidia from [employer]. Review of Systems Const All systems reviewed & are unremarkable except as noted in HPI and below Physical exam (Primary Care) Tobacco/Smoking Status: Tobacco use Status Tobacco use date assessed 11/18/24 11/18/24 11:30 Patient Tobacco Use Status Current everyday Tobacco 11/18/24 11:30 e-Cigarette/Vaping Use Former Use 11/18/24 11:30 Thrive Assessment: Date of Thrive Assessment Date Thrive assessed 04/21/23 11/18/24 11:30 Telehealth Telehealth Telehealth Platform: [email or web address] Location of provider rendering services: practice address Location of patient: address on file Patient Identification confirmed using: Name, : Yes Telehealth method: video Patient verbally consented to treatment: Yes Patient verbally consented to billing insurance company: Yes Patient informed of any privacy concerns related to visit: Yes Minutes spent on Phone/Video with Pt.: 15 Coding Level of Care Code Tele Est Pt Level 3 ([id number]) Diagnoses Alcohol use disorder, mild, in early remission F10.11 Assessment & Plan Assessment & Plan (1) Alcohol use disorder, mild, in early remission: Code(s): F10.11 - Alcohol abuse, in remission Category: Medical Plan: Patient is currently following the Singulair method in treating her alcohol use disorder. She has not been drinking on a regular basis but is afraid that she might start relapsing into alcoholism if she goes out and drink socially. Prescription for naltrexone 50 mg taken once a day was sent to her pharmacy. Naltrexone is at the heart of the Rincon Method (TSM) for Alcoholism.? ?When you take Naltrexone prior to drinking, it blocks endorphins, the naturally occurring opiates in the brain, from being released when alcohol is consumed. Patient plans to use it only on an as needed basis Medications: New naltrexone 50 mg PO DAILY 30 tabs 0RF F10.11 - Alcohol abuse, in remission
== END 2024-11-18 12:12 | disposition home or self-care (01) ==
LOC: HO.HMCC 11:29
PROVIDERS: PCP Internal Medicine; Visit Provider Internal Medicine
DX: F10.11 Alcohol abuse, in remission (principal)

== ENCOUNTER → 2024-11-18 11:29 | Outpatient (BNVA) | payer OTHER, SELFPAY | PROVIDERS: PCP Internal Medicine; Visit Provider Internal Medicine ==

== ENCOUNTER 2025-02-16 15:52 | Outpatient (AMB) | payer OTHER, SELFPAY ==
--- NOTE | 2025-02-16 15:54 | MHC.PC.OV ---
Vital Signs 02/16/25 15:55 Height 5 ft 4 in Weight 117 lb BMI 20.1 BP 94/60 Blood Pressure Location Rt brachial Position Sitting Respiration 16 Pulse 74 Pulse Source Pulse Oximeter Temp 98.2 F Temp Source Oral Pulse Oximetry (%) 98 Oxygen Delivery Method Room Air Intake Visit Reasons: PE Intake Note: Pt is here today for her PE Is last menstrual period known: Yes Last menstrual period: 02/09/25 Allergies naltrexone Allergy (Intermediate, Verified 02/16/25 15:56) Agitated chicken derived (CHICKEN DERIVED) Allergy (Unknown, Verified 02/16/25 15:56) STOMACH UPSET fish derived (FISH DERIVED) Allergy (Unknown, Verified 02/16/25 15:56) NAUSEA & VOMITING wheat (WHEAT) Adverse Reaction (Severe, Verified 02/16/25 15:56) VOMITING egg (EGGS) Adverse Reaction (Unknown, Verified 02/16/25 15:56) NAUSEA/STOMACH CRAMPS nut - unspecified (nut) Adverse Reaction (Unknown, Verified 02/16/25 15:56) VOMITING CHICK PEAS Allergy (Severe, Uncoded 02/16/25 15:56) ANAPHYLAXIS chicken Allergy (Unknown, Uncoded 02/16/25 15:56) Unknown chickpeas Allergy (Unknown, Uncoded 02/16/25 15:56) Unknown codfish Allergy (Unknown, Uncoded 02/16/25 15:56) Unknown egg Allergy (Unknown, Uncoded 02/16/25 15:56) Unknown fish Allergy (Unknown, Uncoded 02/16/25 15:56) Unknown garlic Allergy (Unknown, Uncoded 02/16/25 15:56) Unknown chaz Allergy (Unknown, Uncoded 02/16/25 15:56) Unknown nuts Allergy (Unknown, Uncoded 02/16/25 15:56) Unknown peanuts Allergy (Unknown, Uncoded 02/16/25 15:56) Unknown potatoes Allergy (Unknown, Uncoded 02/16/25 15:56) Unknown soybean Allergy (Unknown, Uncoded 02/16/25 15:56) Unknown turkey Allergy (Unknown, Uncoded 02/16/25 15:56) Unknown wheat Allergy (Unknown, Uncoded 02/16/25 15:56) Unknown Medication List - Last Reconciled 02/16/25 by Ashley Harmon MD Advair HFA 230-21 mcg/actuation (fluticasone propion-salmeterol) 2 puffs inhalation BID 90 days NS albuterol sulfate 90 mcg/actuation 1 inh inhalation Q4-6H PRN 30 days cetirizine (Zyrtec) 10 mg PO DAILY PRN clobetasol 0.05% 1 appl topical DAILY epinephrine (EpiPen 2-Andrew) 0.3 mg (0.3 mL) IM ONCE PRN 90 days fluoxetine 10 mg PO DAILY 90 days fluoxetine 20 mg PO DAILY 90 days fluticasone propionate 50 mcg/actuation (Allergy Relief (fluticasone)) 1 spray intranasal DAILY gabapentin 300 mg PO BID hydroxyzine HCl 25 mg PO BEDTIME PRN mometasone 0.1% 1 appl topical Q2D montelukast 10 mg PO DAILY 90 days pimecrolimus 1% (Elidel) 1 appl topical BID 30 days prednisone 10 mg PO DAILY PRN [triamcinolone and Emollient .1% Kit apply locally on skin as needed 30 days] Tobacco use date assessed: 02/16/25 Dental Screening Dental Screen Date: 02/16/25 Did you have a dental visit in the last 12 months?: No Did you have a dental problem in the last 6 months where you did not have access to dental care?: No Was dental information given to patient?: Patient has dentist HPI PE HPI Details Intake 24-year-old lady with history of multiple allergies, bronchial asthma, Eczema , Acne , anxiety disorder, and history of alcohol use disorder., here for her physical exam. Currently on Advair and montelukast for asthma control, rarely needing to her albuterol inhaler. She takes cetirizine daily and fluticasone nasal spray for her allergic rhinitis. Her anxiety and depression is controlled on fluoxetine and gabapentin, and takes hydroxyzine as needed at night Currently being seen by dermatology for Bactrim and eczema Patient states that she has cut back on her alcohol use, now done 2 due to 4 times a month and no binge drinking. Has tried taking naltrexone to help curb her alcohol use but it made her more anxious and agitated. 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 [facility] Medical History (Updated 02/20/25 @ 00:19 by Ashley Harmon MD) Acne Alcohol use disorder, mild, in early remission Mild intermittent asthma Nut allergy Food allergic dermatitis Eczema Anxiety Surgical History No pertinent past surgical history Family History Brother Mental health disorder Maternal Aunt Mental health disorder Maternal Uncle Mental health disorder Social History (Updated 02/16/25 @ 16:08 by Ashley Harmon MD) Housing: Condominium Patient Tobacco Use Status: Former Tobacco user Cigarettes Per Day: 1 e-Cigarette/Vaping Use: Former Use Second Hand Smoke Exposure: No service: No Current occupational status: employed Current occupational exposures/hazards: Yes Cognitive needs: No Hearing needs: No Vision needs: No Female Reproductive History Menstrual Date of last menstrual period: 02/09/25 Questionnaire PHQ-9 Over the last 2 weeks, how often have you been bothered by any of the following problems? 1. Little interest or pleasure in doing things: not at all 2. Feeling down, depressed, or hopeless: not at all 3. Trouble falling or staying asleep, or sleeping too much: several days 4. Feeling tired or having little energy: not at all 5. Poor appetite or overeating: not at all 6. Feeling bad about yourself - or that you are a failure or have let yourself or your family down: not at all 7. Trouble concentrating on things, such as reading the newspaper or watching television: not at all 8. Moving or speaking so slowly that other people could have noticed. Or the opposite - being so fidgety or restless that you have been moving around a lot more than usual: not at all 9. Thoughts that you would be better off or of hurting yourself in some way: not at all Total score: 1 Depression Screening Interpretation: Negative Depression Screening Done: Yes 06235 - PHQ-9 Billing: Yes Source: Developed by Drs. Ponce Yoo, Alta Yusuf, Trey Gold and colleagues, with an educational olga lidia from [employer]. Thrive Questionnaire Date Thrive assessed: 02/16/25 I am a: Patient What is your living situation today?: I have a steady place to live Within the past 12 months, did the food you bought not last and you didn't have the money to get more?: Never true Within the past 12 months, did you worry whether your food would run out before you got money to buy more?: Never true Do you have trouble paying for medicines?: No Do you have trouble getting transportation to medical appointments?: No Do you have trouble paying your heating and electricity bill?: No Do you have trouble taking care of your child, family member or friend?: No Do you have trouble with day-to-day activities such as bathing, preparing meals, shopping, managing finances, etc.?: No Are you currently unemployed and looking for a job?: No Are you interested in more education?: Yes Please select the resources that you would like help with: None Currently or been in a relationship where the following occur: No concerns reported THRIVE Score: 0 AUDIT C Alcohol Use Questionnaire (AUDIT-C) 1. How often do you have a drink containing alcohol?: 2-4 times a month 2. How many drinks containing alcohol do you have on a typical day when you are drinking?: 3 or 4 3. How often do you have six or more drinks on one occasion?: Less than monthly Total Score: 4 MARIELA-7 AMB Questionnaire MARIELA-7 Date MARIELA - 7 assessed: 02/16/25 Feeling nervous, anxious, or on edge: 1 = Several days Not being able to stop or control worryin = Several days Worrying too much about different things: 0 = Not at all Trouble relaxin = Several days Being so restless that it is hard to sit still: 0 = Not at all Becoming easily annoyed or irritable: 1 = Several days Feeling afraid as if something awful might happen: 1 = Several days Total MARIELA-7 score (0-4 normal; 5-9 mild; 10-14 moderate; 15-21 severe): 5 Source: Developed by Drs. Ponce Yoo, Alta Yusuf, Trey Gold and colleagues, with an educational olga lidia from [employer]. Review of Systems Const Denies body aches, Denies fever(s), Denies headache(s) and Denies weakness Eyes Denies change in vision ENT Denies dizziness, Denies headache(s), Denies nasal congestion, Denies nasal discharge and Denies sore throat Card Denies chest pain, Denies lightheadedness, Denies palpitations and Denies dyspnea Resp Denies chest congestion, Denies cough, Denies dyspnea and Denies wheezing GI Denies abdominal pain, Denies change in bowel habits and Denies heartburn Denies hematuria, Denies urinary frequency, Denies dysuria and Denies urinary urgency Musc Reports no additional complaints Skin/Breast Denies breast pain, Denies breast mass, Denies lesions and Denies rash Neuro Denies dizziness, Denies headache(s) and Denies weakness Psych Reports as per HPI Endo Denies polydipsia, Denies polyuria and Denies palpitations Sergey/Lymph Denies easy bruising Aller/Immun Reports GI upset with certain foods, Reports seasonal rhinorrhea and Denies wheezing Physical exam (Primary Care) Vital Signs: Last Vital Signs Temp 98.2 F 02/16/25 15:55 Pulse 74 02/16/25 15:55 Resp 16 02/16/25 15:55 BP 94/60 02/16/25 15:55 Pulse Ox 98 02/16/25 15:55 Oxygen Delivery Method Room Air 02/16/25 15:55 BMI result Body Mass Index 20.1 Tobacco/Smoking Status: Tobacco use Status Tobacco use date assessed 02/16/25 02/16/25 16:02 Patient Tobacco Use Status Former Tobacco user 02/16/25 16:08 e-Cigarette/Vaping Use Former Use 02/16/25 16:08 PHQ-9: PHQ-9 Score PHQ-9: Total score 1 02/16/25 16:42 Depression Screening Interpretation: Negative Thrive Assessment: Date of Thrive Assessment Date Thrive assessed 02/16/25 02/16/25 16:03 Currently or been in a relationship where the following occur: No concerns reported Const General: cooperative and no acute distress Nutritional Appearance: average body habitus Orientation/consciousness: patient oriented x3 HENMT Head: Yes normal to inspection and Yes normocephalic Ears: TM's normal bilaterally Eyes General: appearance normal, both eyes and all related structures Neck Neck: Yes normal visual inspection and Yes no lymphadenopathy Chest Chest palpation & inspection: normal inspection of the chest Breast/axilla palpation: normal palpation of the breasts Resp Effort & Inspection: normal respiratory effort Auscultation: clear to auscultation bilaterally Cardio Rate: regular rate Rhythm: regular rhythm Heart sounds: S1 normal heart sound present, S2 normal heart sound present and no murmurs GI Palpation (GI): Soft to palpation and nontender Auscultation: normal bowel sounds General: Yes no CVA tenderness and Yes deferred Back/Spine/Pelvis Back: no CVA tenderness and No back tenderness Skin General skin exam: dry skin and other (acneiform lesions on face) Rashes: no rashes Neuro General: patient oriented x3, moves all extremities, no focal motor deficits and deep tendon reflexes 2+ bilaterally Romberg Test: Negative Extrem General: Yes normal to inspection, Yes full ROM, Yes no joint enlargement, Yes no clubbing, cyanosis or edema and Yes normal gait Psych Appearance: grossly normal Mental Status: mental status grossly normal Speech and movement: Normal speech and movement present Affect: normal affect Attitude: cooperative Thought process: Normal thought process present Thought content: Normal thought content present Coding Level of Care Code Est Pt Prev Care 18-39y(00731) Diagnoses Eczema, unspecified type L30.9 Eczema type: unspecified Food allergic dermatitis L27.2 Physical exam Z00.00 Alcohol use disorder, mild, in early remission F10.11 Screening for cervical cancer Z12.4 Anxiety F41.9 Mild intermittent asthma without complication J45.20 Asthma complication type: uncomplicated Hives L50.9 Acne vulgaris L70.0 Acne type: acne vulgaris Additional Codes PHQ-9 - 39315 - PHQ-9 Billing: Yes ([id number]) Assessment & Plan Assessment & Plan (1) Eczema: Code(s): L30.9 - Dermatitis, unspecified Category: Medical Qualifiers: Eczema type: unspecified Qualified Code(s): L30.9 - Dermatitis, unspecified Plan: Currently followed by dermatology, as been prescribed clobetasol 0.05% cream mometasone 0.1% for facial lesions (2) Food allergic dermatitis: Code(s): L27.2 - Dermatitis due to ingested food Category: Medical Plan: Followed by dermatology (3) Physical exam: Code(s): Z00.00 - Encounter for general adult medical examination without abnormal findings Category: Medical Plan: Will check appropriate labs. Recommended dental visit every 6 months and regular eye exams, at least every 2 years. Take adequate calcium in diet and vitamin-D 3 at 2000 IU per cap once a day, in addition to weight-bearing exercises to help maintain good muscle tone and weight control. Instructed to do self-breast exam, and recommended to get yearly mammogram, starting at age 40. Referred to OBGYN for her routine Pap and exam. Declines flu vaccine (4) Alcohol use disorder, mild, in early remission: Code(s): F10.11 - Alcohol abuse, in remission Category: Medical Plan: Patient counseled regarding alcohol intake (5) Screening for cervical cancer: Code(s): Z12.4 - Encounter for screening for malignant neoplasm of cervix Category: Medical Plan: Referred to [facility] for her routine Pap and pelvic exam (6) Anxiety: Code(s): F41.9 - Anxiety disorder, unspecified Category: Medical Plan: Controlled on fluoxetine and gabapentin (7) Mild intermittent asthma: Code(s): J45.20 - Mild intermittent asthma, uncomplicated Category: Medical Qualifiers: Asthma complication type: uncomplicated Qualified Code(s): J45.20 - Mild intermittent asthma, uncomplicated Plan: Controlled on Advair HFA 230-21 mcg per actuation inhalations twice a day, reminded to gargle mouth after use, has albuterol inhaler which rarely needs to use (8) Hives: Code(s): L50.9 - Urticaria, unspecified Category: Medical Plan: Patient takes hydroxyzine at bedtime (9) Acne: Code(s): L70.9 - Acne, unspecified Category: Medical Qualifiers: Acne type: acne vulgaris Qualified Code(s): L70.0 - Acne vulgaris Plan: Prescription sent for nabumetone form 1% apply sparingly to affected areas on face at night, advised to wear sunscreen when going out follow-up with dermatology Orders: Orders Complete Blood Count Auto Diff 02/16/25 F10.11 - Alcohol abuse, in remission, L27.2 - Dermatitis due to ingested food, L30.9 - Dermatitis, unspecified, Z00.00 - Encounter for general adult medical examination without abnormal findings, Z13.1 - Encounter for screening for diabetes mellitus, Z13.220 - Encounter for screening for lipoid disorders Comprehensive [place]. Panel Fast 02/16/25 F10.11 - Alcohol abuse, in remission, L27.2 - Dermatitis due to ingested food, L30.9 - Dermatitis, unspecified, Z00.00 - Encounter for general adult medical examination without abnormal findings, Z13.1 - Encounter for screening for diabetes mellitus, Z13.220 - Encounter for screening for lipoid disorders Lipid Panel 02/16/25 F10.11 - Alcohol abuse, in remission, L27.2 - Dermatitis due to ingested food, L30.9 - Dermatitis, unspecified, Z00.00 - Encounter for general adult medical examination without abnormal findings, Z13.1 - Encounter for screening for diabetes mellitus, Z13.220 - Encounter for screening for lipoid disorders Vitamin D 25-OH Total 02/16/25 F10.11 - Alcohol abuse, in remission, L27.2 - Dermatitis due to ingested food, L30.9 - Dermatitis, unspecified, Z00.00 - Encounter for general adult medical examination without abnormal findings, Z13.1 - Encounter for screening for diabetes mellitus, Z13.220 - Encounter for screening for lipoid disorders Referrals [employer] OPERATOR Referral Z12.4 - Encounter for screening for malignant neoplasm of cervix Medications: New prednisone 10 mg PO DAILY PRN 30 tabs 0RF Eczema gabapentin 300mg in am and 600mg pm 300 mg PO Q8H 90 caps 6RF adapalene 0.1% 1 appl topical BEDTIME PRN 45 grams 0RF acne Refilled fluoxetine to be administered with fluoxetine 20mg concurrently, for a total of 30mg 10 mg PO DAILY 90 caps 4RF 90 days fluoxetine administer with fluoxetine 10mg concurrently, for a total of 30mg 20 mg PO DAILY 90 caps 4RF 90 days F41.9 - Anxiety disorder, unspecified montelukast 10 mg PO DAILY 90 tabs 3RF 90 days
[2025-02-16 15:55] VITALS: BP 94/60; PULSE 74; RESP 16; TEMP 36.8; O2SAT 98; BMI 20.1
== END 2025-02-16 16:39 | disposition home or self-care (01) ==
LOC: HO.HMCC 15:53
PROVIDERS: PCP Internal Medicine; Visit Provider Internal Medicine
DX: L30.9 Dermatitis, unspecified (principal); L27.2 Dermatitis due to ingested food; Z00.00 Encounter for general adult medical examination without abnormal findings; F10.11 Alcohol abuse, in remission; Z12.4 Encounter for screening for malignant neoplasm of cervix; F41.9 Anxiety disorder, unspecified; J45.20 Mild intermittent asthma, uncomplicated; L50.9 Urticaria, unspecified; L70.0 Acne vulgaris

== ENCOUNTER → 2025-02-16 15:52 | Outpatient (BNVA) | payer OTHER, SELFPAY | PROVIDERS: PCP Internal Medicine; Visit Provider Internal Medicine | DX: Z00.00 Encounter for general adult medical examination without abnormal findings (principal); J45.909 Unspecified asthma, uncomplicated; L30.9 Dermatitis, unspecified; F41.9 Anxiety disorder, unspecified; F10.11 Alcohol abuse, in remission; J45.20 Mild intermittent asthma, uncomplicated; L50.9 Urticaria, unspecified; L70.0 Acne vulgaris | CPT/HCPCS: 96127 ==